=== PATIENT | male | born 1970 | race Caucasian/White ===

== ENCOUNTER → 2024-07-21 | Outpatient (CLI) | payer MEDICAID ==
--- NOTE | 2024-07-21 15:14 | XR ---
EXAMINATION TYPE: XR Hip 2 views RT and AP Pelvis DATE OF EXAM: 07/21/2024 2:12 PM COMPARISON: None CLINICAL INDICATION: Male, 54 years old with history of M25.551 PAIN IN RIGHT HIP; PHH, pain FINDINGS: There is a right hip total arthroplasty present. Both acetabular cup and femoral stem components of t he prosthesis are well seated without periprosthetic fracture. Small foci of heterotopic ossification or postsurgical bony debris are present along the superior aspect of the hip measuring up to 9 mm. T his would not be expected to contribute to any significant encroachment onto the head movement. SI sathya ints appear symmetric and intact as is the pubic symphysis. Left hip joint is intact. IMPRESSION: Uncomplicated right hip total arthroplasty. Pelvis and right hip without acute osseous abnormality [facility] Jose Luis Hinojosa, , 07/21/2024 3:12 PM
== END | disposition home or self-care (01) ==
LOC: RADXRMAIN 13:46
PROVIDERS: ATTEND Physical Medicine & Rehabilitation
DX: M25.551 Pain in right hip (principal); Z96.641 Presence of right artificial hip joint
CPT/HCPCS: 73502